=== PATIENT | female | born 1945 | race Caucasian/White ===

== ENCOUNTER → 2023-02-26 00:30 | Outpatient (CLI) | payer MEDICARE, SELFPAY ==
--- NOTE | 2023-02-26 07:45 | DI.RAD_ITS ---
Exam(s) XR ELBOW RT COMPLETE XR HUMERUS RT EXAM: XR ELBOW RT COMPLETE and XR humerus RT CLINICAL HISTORY: right elbow and upper humerus pain,M89.8x2,m25.521. TECHNIQUE: 2D digital imaging was performed of the right elbow. Six images were obtained. AP, late ral and oblique views were obtained. COMPARISON: There are no priors for comparison. FINDINGS: BONES: No acute fracture is present. No bony destructive lesion is seen. JOINTS: The elbow is normally aligned. No joint effusion is seen. There are mild degenerative changes seen at the acromioclavicular joint. The glenohumeral joint appears unremarkable. SOFT TISSUE: There is a in well corticated bony density adjacent to the shaft of the proximal humerus . It appears separate from the humerus and chronic. No periosteal reaction is seen. IMPRESSION: 1. No acute abnormality is seen in the humerus or right elbow. 2. Mild degenerative changes seen at the acromioclavicular joint. DATA REPOSITORY: RADIATION DOSE DELIVERED:
== END ==
PROVIDERS: PCP Family Medicine; Visit Provider Family Medicine
DX: M25.521 Pain in right elbow (principal); M89.8X2 Other specified disorders of bone, upper arm
CPT/HCPCS: 73060; 73080